=== PATIENT | male | born 1950 | race African-American/Black ===

== ENCOUNTER 2022-01-17 14:58 | Inpatient (IN) | payer MEDICARE ==
[~2022-01-17] VITALS: Ht 177.8 cm; Wt 105.7 kg
[2022-01-17 15:30] LABS: BASOPHILS % 0.4 % (0.0-1.0); EOSINOPHILS # (AUTO) 0.1 (0.0-0.4); EOSINOPHILS % 1.5 % (0.0-6.0); HEMATOCRIT 33.5 % (38.2-49.6); LYMPHOCYTES # (AUTO) 1.2 (1.0-3.2); MEAN CORPUSCULAR HEMOGLOBIN 28.5 pg (28-32); MEAN CORPUSCULAR HGB CONC 32.8 g/dL (31-35); MEAN CORPUSCULAR VOLUME 86.8 fL (81-99); MONOCYTES # (AUTO) 0.8 (0.2-0.8); MONOCYTES % 8.3 % (4.4-11.3); NEUTROPHILS # (AUTO) 7.5 (2.1-6.9); NEUTROPHILS % 77.5 % (38.7-80.0); PLATELET COUNT 186 x10e3/uL (140-360); RED BLOOD COUNT 3.86 x10e6/uL (4.3-5.7); RED CELL DISTRIBUTION WIDTH 12.7 % (11.7-14.4)
[2022-01-17 16:09] LABS: ALBUMIN 3.4 g/dL (3.5-5.0); ANION GAP 16.2 mmol/L (8-16); CALCIUM 8.5 mg/dL (8.4-10.2); CREATININE, SERUM 2.85 mg/dL (0.72-1.25); POTASSIUM 4.2 mmol/L (3.5-5.1)
[2022-01-17] MEDS ORDERED: LACTATED RINGER'S 500 ML IV ONE (17:00)
[2022-01-17] MEDS ORDERED: ASPIRIN 81 MG CHEW TAB PO ONE (17:00)
[2022-01-17 17:07] LABS: CLARITY,URINE CLEAR (CLEAR); COLOR,URINE YELLOW (YELLOW)
[2022-01-17] MEDS ORDERED: LACTATED RINGER'S 1,000 ML ONE (17:07)
[2022-01-17 17:08] LABS: KETONES,URINE NEGATIVE (NEGATIVE); LEUKOCYTE ESTERASE ,URINE NEGATIVE (NEGATIVE); NITRITE,URINE NEGATIVE (NEGATIVE); PROTEIN,URINE DIPSTICK >=300 (NEGATIVE); URINE UROBILINOGEN 0.2 mg/dL (0.2 - 1)
[2022-01-17 17:18] LABS: BACTERIA,URINE FEW /HPF; EPITHELIAL CELLS,URINE RARE /LPF; RBC,URINE 0-5 /HPF (0-5)
[2022-01-17 18:23] VITALS: BP 163/68
[2022-01-17] MEDS ORDERED: AMLODIPINE BESY10 MG PO (20:31)
[2022-01-17] MEDS ORDERED: ACTOS15 MG PO (20:31)
[2022-01-17] MEDS ORDERED: GLIPIZIDE5 MG PO (20:31)
[2022-01-17] MEDS ORDERED: FUROSEMIDE40 MG PO (20:31)
[2022-01-17] MEDS ORDERED: XANAX0.5 MG PO (20:31)
[2022-01-17] MEDS ORDERED: ATORVASTATIN CA20 MG PO (20:31)
[2022-01-17] MEDS ORDERED: SERTRALINE HCL100 MG PO (20:31)
[2022-01-17] MEDS ORDERED: METOPROLOL SUCC50 MG PO (20:31)
[2022-01-17 20:32] VITALS: BP 163/68
[2022-01-17 21:00] VITALS: BP 163/68
[2022-01-17] MEDS: SERTRALINE HCL 100 MG TAB PO SCH (22:13)
[2022-01-17] MEDS: ATORVASTATIN 20 MG TAB PO SCH (22:13)
[2022-01-17] MEDS: ALPRAZOLAM 0.5 MG TAB PO PRN (22:13)
[2022-01-18 03:58] LABS: CREATINE KINASE MB 2.3 ng/mL (0-5.0)
[2022-01-18 06:13] LABS: BASOPHILS % 0.4 % (0.0-1.0); EOSINOPHILS # (AUTO) 0.2 (0.0-0.4); EOSINOPHILS % 1.5 % (0.0-6.0); HEMATOCRIT 36.1 % (38.2-49.6); HEMOGLOBIN 12.1 g/dL (14.0-18.0); LYMPHOCYTES # (AUTO) 1.3 (1.0-3.2); MEAN CORPUSCULAR HEMOGLOBIN 28.7 pg (28-32); MEAN CORPUSCULAR HGB CONC 33.5 g/dL (31-35); MEAN CORPUSCULAR VOLUME 85.5 fL (81-99); MONOCYTES % 9.2 % (4.4-11.3); NEUTROPHILS # (AUTO) 8.2 (2.1-6.9); NEUTROPHILS % 76.3 % (38.7-80.0); PLATELET COUNT 190 x10e3/uL (140-360); RED BLOOD COUNT 4.22 x10e6/uL (4.3-5.7)
[2022-01-18 06:47] LABS: ANION GAP 17.1 mmol/L (8-16); CALCIUM 8.7 mg/dL (8.4-10.2); CREATININE, SERUM 2.5 mg/dL (0.72-1.25); POTASSIUM 4.1 mmol/L (3.5-5.1)
[2022-01-18] MEDS ORDERED: GLIPIZIDE 5 MG TAB PO SCH (08:00)
[2022-01-18] MEDS ORDERED: GLIPIZIDE 2.5 MG TABCR PO SCH ×2 (08:00)
[2022-01-18 08:24] VITALS: BP 157/57
[2022-01-18 08:25] VITALS: BP 157/57
[2022-01-18] MEDS: AMLODIPINE BESYLATE 10 MG TAB PO SCH (08:53)
[2022-01-18] MEDS: METOPROLOL SUCCINATE 50 MG TAB XL PO SCH ×2 (08:53→17:27)
[2022-01-18] MEDS: ALPRAZOLAM 0.5 MG TAB PO PRN ×2 (08:57→17:27)
[2022-01-18] MEDS ORDERED: FUROSEMIDE 20 MG TAB PO SCH (09:00)
[2022-01-18] MEDS: PIOGLITAZONE HCL 15 MG TAB PO SCH (09:02)
[2022-01-18 11:48] VITALS: BP 153/61
[2022-01-18 15:28] VITALS: BP 130/78
[2022-01-18] MEDS ORDERED: LACTATED RINGER'S 1,000 ML INJ ONE (17:15)
[2022-01-18] MEDS: GLIPIZIDE 5 MG TAB ER PO SCH (17:52)
[2022-01-18 19:56] VITALS: BP 124/92
[2022-01-18 21:00] VITALS: BP 124/92
[2022-01-18] MEDS: ATORVASTATIN 20 MG TAB PO SCH (22:30)
[2022-01-18] MEDS: SERTRALINE HCL 100 MG TAB PO SCH (22:30)
[2022-01-18] MEDS: HYDROCODONE/APAP 10MG-325MG TAB PO PRN (22:57)
[2022-01-19] VITALS (7 sets, daily range): BP systolic 117–160; BP diastolic 50–74
[2022-01-19 06:27] LABS: ANION GAP 12.9 mmol/L (8-16); CALCIUM 8.2 mg/dL (8.4-10.2); CREATININE, SERUM 2.48 mg/dL (0.72-1.25); POTASSIUM 3.9 mmol/L (3.5-5.1)
[2022-01-19] MEDS: METOPROLOL SUCCINATE 50 MG TAB XL PO SCH ×2 (09:26→17:43)
[2022-01-19] MEDS: GLIPIZIDE 5 MG TAB ER PO SCH ×2 (09:27→17:43)
[2022-01-19] MEDS: AMLODIPINE BESYLATE 10 MG TAB PO SCH (09:28)
[2022-01-19] MEDS: ALPRAZOLAM 0.5 MG TAB PO PRN ×3 (09:28→21:58)
[2022-01-19] MEDS: PIOGLITAZONE HCL 15 MG TAB PO SCH (09:28)
[2022-01-19] MEDS: HYDROCODONE/APAP 10MG-325MG TAB PO PRN ×3 (09:29→21:58)
[2022-01-19] MEDS: SERTRALINE HCL 100 MG TAB PO SCH (21:58)
[2022-01-19] MEDS: ATORVASTATIN 20 MG TAB PO SCH (21:58)
[2022-01-19 22:01] LABS: CREATININE,URINE RANDOM 63.96 mg/dL (63-166)
[2022-01-19 22:32] LABS: TOTAL PROTEIN 24HR, URINE 8088.6 mg/24hr (50-100); TOTAL PROTEIN, URINE 311.1 mg/dL (1-14)
[2022-01-20] VITALS (12 sets, daily range): BP systolic 141–172; BP diastolic 68–82
[2022-01-20 06:17] LABS: ANION GAP 15.1 mmol/L (8-16); CALCIUM 8.3 mg/dL (8.4-10.2); CREATININE, SERUM 2.53 mg/dL (0.72-1.25); POTASSIUM 4.1 mmol/L (3.5-5.1)
[2022-01-20] MEDS: GLIPIZIDE 5 MG TAB ER PO SCH ×2 (09:30→17:29)
[2022-01-20] MEDS: AMLODIPINE BESYLATE 10 MG TAB PO SCH (09:31)
[2022-01-20] MEDS: PIOGLITAZONE HCL 15 MG TAB PO SCH (09:31)
[2022-01-20] MEDS: METOPROLOL SUCCINATE 50 MG TAB XL PO SCH ×2 (09:32→17:29)
[2022-01-20] MEDS: HYDROCODONE/APAP 10MG-325MG TAB PO PRN ×2 (09:33→15:54)
[2022-01-20] MEDS: ALPRAZOLAM 0.5 MG TAB PO PRN ×2 (09:38→15:54)
[2022-01-20] MEDS ORDERED: SODIUM CHLORIDE 0.9% 1000ML 1,000 ML IV SCH ×2 (13:30→15:15)
[2022-01-20] MEDS ORDERED: HEPARIN SOD (PORCINE) 1000 UNIT/ML 30ML ONE (13:54)
[2022-01-20] MEDS ORDERED: HEPARIN SOD/SOD CHLORIDE 2,000 ML ONE (13:54)
[2022-01-20] MEDS ORDERED: IOPAMIDOL 370 MG/ML 100 ML INFUS..BTL INJ ONE (13:54)
[2022-01-20] MEDS ORDERED: NITROGLYCERIN/D5W 200 MCG/ML 250 ML ONE (13:55)
[2022-01-20] MEDS ORDERED: LIDOCAINE 1% 10 ML MULTIDOSE VIAL IJ ONE (13:55)
[2022-01-20] MEDS ORDERED: MIDAZOLAM HCL 2 MG/2 ML VIAL ONE (13:56)
[2022-01-20] MEDS ORDERED: FENTANYL CITRATE/PF 100MCG/2 ML INJ ONE (13:56)
== END 2022-01-20 19:17 | disposition home or self-care (01) | DRG 68 ==
LOC: ER 16:00 → ERHOLD 16:49 → MED/SURG2 18:04 → OBSVTOIN 01-19 12:46
PROC: 4A023N8 Measurement of Cardiac Sampling and Pressure, Bilateral, Percutaneous Approach (ICD-10-PCS; principal; 2022-01-20)
PROC: B2111ZZ Fluoroscopy of Multiple Coronary Arteries using Low Osmolar Contrast (ICD-10-PCS; 2022-01-20)
PROC: B3051ZZ Plain Radiography of Bilateral Common Carotid Arteries using Low Osmolar Contrast (ICD-10-PCS; 2022-01-20)
DX: I65.23 Occlusion and stenosis of bilateral carotid arteries (principal); I25.110 Atherosclerotic heart disease of native coronary artery with unstable angina pectoris; N17.9 Acute kidney failure, unspecified; J44.9 Chronic obstructive pulmonary disease, unspecified; E78.00 Pure hypercholesterolemia, unspecified; E11.69 Type 2 diabetes mellitus with other specified complication; E11.22 Type 2 diabetes mellitus with diabetic chronic kidney disease; I12.9 Hypertensive chronic kidney disease with stage 1 through stage 4 chronic kidney disease, or unspecified chronic kidney disease; N18.30 Chronic kidney disease, stage 3 unspecified; Z79.4 Long term (current) use of insulin; Z20.822 Contact with and (suspected) exposure to COVID-19; E66.09 Other obesity due to excess calories; Z68.33 Body mass index [BMI] 33.0-33.9, adult
CPT/HCPCS: 0223U; 36415; 70450; 71045; 72131; 76770; 76937; 80048; 80053; 81001; 81050; 82550; 82553; 82570; 82948; 83880; 84156; 84484; 85025; 93005; 93306; 93454; 93880; 94799; 99152; 99251; 99284; C1760; C1766; C1769; C1887; G0378; J1644; J2250; J3010; J7030; J7121; Q9967